=== PATIENT | male | born 1990 | race Caucasian/White ===

== ENCOUNTER 2018-08-29 23:30 | Emergency (ER) | payer SELFPAY ==
[2018-08-29 23:34] VITALS: BP 144/83; PULSE 72; TEMP 98; BMI 26.6
== END 2018-08-30 00:28 | disposition left against medical advice (07) ==
LOC: JER 23:30
DX: R09.89 Other specified symptoms and signs involving the circulatory and respiratory systems (principal)
CPT/HCPCS: 99281-25